=== PATIENT | male | born 1960 | race Caucasian/White ===

== ENCOUNTER 2018-06-17 11:06 | Day surgery (SDC) | payer OTHER ==
[2018-06-17] MEDS: LR 1,000 ML IV (11:55)
[2018-06-17] MEDS ORDERED: fentaNYL 100 MCG/2 ML INJECTION (J3010) As Ordered (13:38)
[2018-06-17] MEDS ORDERED: MIDAZOLAM INJ 2 MG/2 ML VIAL (J2250) As Ordered (13:38)
[2018-06-17] MEDS ORDERED: PROPOFOL 200 MG/20 ML VIAL As Ordered (13:40)
[2018-06-17] MEDS ORDERED: LIDOCAINE 2% INJ 100 MG/5 ML SDV (FOR ANES.) As Ordered (13:40)
[2018-06-17] MEDS ORDERED: ROCURONIUM BROMIDE 50 MG/5 ML VIAL As Ordered (13:41)
[2018-06-17] MEDS ORDERED: OXYMETAZOLINE NASAL SPRAY (AFRIN) As Ordered (14:22)
[2018-06-17] MEDS ORDERED: LIDOCAINE W/EPINEPHRINE 1% 20ML VIAL As Ordered (14:22)
[2018-06-17] MEDS ORDERED: METHYLENE BLUE 0.5% (5MG/ML) 10 ML AMP (PROVAYBLUE)(Q9968 PER 1MG) As Ordered (14:22)
[2018-06-17] MEDS ORDERED: dexameTHASONE 4 MG/ML 1ML VIAL (J1100) As Ordered ×2 (15:01)
[2018-06-17] MEDS ORDERED: ONDANSETRON 4MG/2ML VIAL (J2405) As Ordered (15:01)
[2018-06-17] MEDS ORDERED: SUCCINYLCHOLINE 100 MG/5 ML SYRINGE (J0330) As Ordered (15:42)
[2018-06-17] MEDS ORDERED: PERCOCET 5MG/325MG TAB As Ordered (15:58)
[2018-06-17] MEDS: PERCOCET 5MG/325MG TAB PO ×2 (16:03→17:01)
[2018-06-17] MEDS ORDERED: fentaNYL 100 MCG/2 ML INJECTION (J3010) IV (16:15)
[2018-06-17] MEDS ORDERED: ONDANSETRON 4MG/2ML VIAL (J2405) IV (16:15)
[2018-06-17] MEDS ORDERED: LR 1,000 ML IV (16:15)
[2018-06-17] MEDS ORDERED: PERCOCET 5MG/325MG TAB PO (16:15)
[2018-06-17] MEDS ORDERED: MEPERIDINE INJ 25 MG/ML VIAL (J2175) IV (16:15)
[2018-06-17] MEDS ORDERED: METOCLOPRAMIDE INJ 10MG/2ML VIAL (J2765) IV (16:15)
== END 2018-06-17 17:05 | disposition home or self-care (01) ==
LOC: M SDC 17:05
DX: J34.2 Deviated nasal septum (principal); J31.0 Chronic rhinitis
CPT/HCPCS: 30520

== ENCOUNTER → 2022-01-10 | Outpatient (REF) | payer OTHER ==
[~2022-01-10] MED LIST: AZEL0.055; CETI10CH PO; ESCI10TA16 PO; NAPR-885 PO; OMEG10002 PO; OMEP40CA4 PO; SUDA1TAB3 PO
== END ==
LOC: M LAB REF 17:36
PROVIDERS: ATTEND Physician Assistant Medical
DX: H92.12 Otorrhea, left ear (principal)